=== PATIENT | male | born 1945 | race Caucasian/White ===

== ENCOUNTER 2016-03-29 20:50 | Observation (INO) | payer MEDICARE ==
[~2016-03-29] VITALS: Ht 190.5 cm; Wt 90.3 kg
[~2016-03-29 20:50] MED LIST: ACTOS 15MG TAB15 MG PO; ALBUTEROL1.25 MG/3 IH; ALDACTONE50 MG PO; ALTACE 10MG TAB10 MG PO; ALTACE 5MG5 MG PO; AMARYL4 MG PO; AMBIEN 10MG10 MG PO; ASPI325T6 PO; ASPIRIN 81M81 MG/TA2 PO; ATARAX 25MG25 MG/TAB PO; CELEBREX 200MG200 MG PO; CELEXA 20MG20 MG/TAB PO; CELEXA10 MG PO; CEPHALEXIN500 M1 PO; COREG 25MG25 MG/TAB PO; COREG 6.256.25 MG/TA PO; ECONAZOLE NITRATE11 TOP; FERROUS SU325 MG/TAB PO; FLOMAX 0.40.4 MG/CAP PO; FORTAMET1000 MG PO; GLUCOPHAGE1000 MG PO; HCTZ 25MG TAB25 MG PO; HCTZ 25MG25 MG PO; IMDUR 60MG60 MG/TAB PO; JANUVIA 100MG100 MG PO; LANTUS100 U/ML; LANTUS100 U/ML SC; LASIX 40MG TABL40 MG PO; LEVOXYL0.05 MG PO; MELATONIN1 MG PO; NORCO 325 MG-7.1 TAB PO; NOVOLOG 100U100 U/M1; PRAVACHOL10 MG PO; PRAVACHOL80 MG PO; PREDNISONE20 MG PO; PROTONIX 40MG T40 MG PO; Senokot-S PO; VASOTEC20 MG PO; VASOTEC5 MG PO; VICTOZA6 MG/ML SC
[2016-03-29 21:09] LABS: BASO % 0.3 % (0.0-2.0); EOS # 0.1 (0.0-0.7); EOS % 0.9 % (0-4.0); GRAN # 3.2 (1.4-6.5); GRAN % 47.3 % (42.2-75.2); LYMPH # 3.2 (1.2-3.4); LYMPH % 47.5 % (20.0-51.0); MEAN CELL VOLUME 100 fl (80.0-100.0); MEAN CORPUSCULAR HGB CONC 33 g/dl (33.0-37.0); MONO # 0.2 (0.1-0.6); PLATELET COUNT 246 K/mm3 (130-400); RED BLOOD COUNT 3.29 M/mm3 (4.20-5.60); REDCELL DISTRIBUTION WIDTH-CV 14.1 % (11.5-14.5); WHITE BLOOD COUNT 6.7 K/mm3 (4.8-10.8)
[2016-03-29 21:18] LABS: PROTHROMBIN TIME 10.9 SECONDS (9.7-12.8)
[2016-03-29 21:19] LABS: ADJUSTED CALCIUM 9.9 mg/dL (8.4-10.2); ALBUMIN 3.5 gm/dL (3.5-5.0); BILIRUBIN,TOTAL 0.6 mg/dL (0.0-1.0); CALCIUM 9.5 mg/dL (8.4-10.2); CREATININE, serum 1.19 mg/dL (0.66-1.25); TOTAL PROTEIN 6.7 gm/dL (6.4-8.2)
[2016-03-29 21:21] LABS: PARTIAL THROMBOPLASTIN TIME 29.7 SECONDS (26.0-37.0)
[2016-03-29 21:26] LABS: MEAN CORPUSCULAR HEMOGLOBIN 33 pg (27.0-31.0)
[2016-03-29 23:20] VITALS: BP 166/72; PULSE 72; TEMP 97.5
[2016-03-30 02:52] VITALS: BP 171/65; PULSE 80; TEMP 97.9
[2016-03-30 03:30] VITALS: BP 165/69; PULSE 79
[2016-03-30 04:58] VITALS: BP 177/75; PULSE 78; TEMP 97.6
[2016-03-30 06:01] VITALS: BP 163/67; PULSE 71
[2016-03-30 10:29] VITALS: BP 158/123; PULSE 86; TEMP 97.8
[2016-03-30] MEDS ORDERED: SYNTHROID0.1 MG/TAB PO (12:22)
[2016-03-30] MEDS ORDERED: VITAMIN A10k (12:56)
[2016-03-30] MEDS ORDERED: PROTONIX 40MG T40 MG PO (12:56)
[2016-03-30] MEDS ORDERED: VITAMIN D31000 IU PO (12:57)
[2016-03-30] MEDS ORDERED: CENTRUM SILVER1 TAB (12:57)
[2016-03-30] MEDS ORDERED: ALDACTONE50 MG PO (12:58)
[2016-03-30] MEDS ORDERED: ASPIRIN 32325 MG/TAB PO (13:01)
[2016-03-30] MEDS ORDERED: ALTACE 10MG TAB10 MG PO (13:02)
[2016-03-30] MEDS ORDERED: PREDNISONE10 MG PO (13:02)
[2016-03-30 13:27] VITALS: BP 176/76; PULSE 83; TEMP 97.9
[2016-03-30] MEDS ORDERED: LAMISIL250 M1 PO (16:10)
== END 2016-03-30 17:12 | disposition home or self-care (01) ==
LOC: COL.ER 20:50 → SURG 21:05
PROVIDERS: Emergency Medicine
DX: R40.4 Transient alteration of awareness (principal); E11.9 Type 2 diabetes mellitus without complications; Z79.4 Long term (current) use of insulin
CPT/HCPCS: G0378; J1815; J7030

== ENCOUNTER → 2016-04-01 | Outpatient (CLI) | payer MEDICARE ==
[~2016-04-01] MED LIST changes: +ALMACONE 360 M360 ML PO; +ASPIRIN 32325 MG/TAB PO; +ASPIRIN 81M81 MG/TA2 CHEW; +CENTRUM SILVER1 TAB; +DULCOLAX S10 MG/SUPP RC; +HUMALOG100 U/ML SQ; +LAMISIL250 M1 PO; +LANTUS100 U/ML SQ; +METAMUCIL3.4 GM/DOS PO; +MILK OF MA400 MG/52 PO; +MIRALAX PA17 GM/Dose PO; +PERCOCET 325 MG1 TA3 PO; +PREDNISONE10 MG PO; +SYNTHROID0.1 MG/TAB PO; +TYLENOL 325MG325 MG PO; +ULTRAM 50MG TAB50 MG PO; +VITAMIN A10k; +VITAMIN D31000 IU PO
== END ==
LOC: COL.RAD 09:05
DX: Z86.73 Personal history of transient ischemic attack (TIA), and cerebral infarction without residual deficits (principal)

== ENCOUNTER → 2016-07-10 | Outpatient (CLI) | payer MEDICARE ==
[2016-07-10 10:27] LABS: BASO % 0.2 % (0.0-2.0); EOS % 0.2 % (0-4.0); GRAN # 4.6 (1.4-6.5); GRAN % 77.6 % (42.2-75.2); LYMPH # 1.1 (1.2-3.4); LYMPH % 18.1 % (20.0-51.0); MEAN CELL VOLUME 101 fl (80.0-100.0); MEAN CORPUSCULAR HGB CONC 33 g/dl (33.0-37.0); MEAN PLATELET VOLUME 9.6 fl (7.4-10.4); MONO # 0.2 (0.1-0.6); MONO % 3.2 % (1.7-9.3); PLATELET COUNT 202 K/mm3 (130-400); REDCELL DISTRIBUTION WIDTH-CV 13.2 % (11.5-14.5); RETIC % 2.3 % (0.5-3.52); WHITE BLOOD COUNT 5.9 K/mm3 (4.8-10.8)
[2016-07-10 10:28] LABS: HEMATOCRIT 26.2 % (42.0-52.0); HEMOGLOBIN 8.7 g/dl (13.5-18.0); MEAN CORPUSCULAR HEMOGLOBIN 33 pg (27.0-31.0)
[2016-07-10 10:54] LABS: ERYTHROCYTE SEDIMENTATION RATE > 140 mm/hr (0-30)
[2016-07-10 11:37] LABS: ADJUSTED CALCIUM 9.9 mg/dL (8.4-10.2); BILIRUBIN,TOTAL 0.5 mg/dL (0.0-1.0); CALCIUM 9.1 mg/dL (8.4-10.2); CREATININE, serum 1.43 mg/dL (0.66-1.25); POTASSIUM 4.8 mmol/L (3.4-5.0)
[2016-07-10 11:54] LABS: TROPONIN-I 0.06 ng/mL (0.000-0.034)
[2016-07-10 12:05] LABS: THYROID STIMULATING HORMONE 2.68 uIU/mL (0.465-4.680)
[2016-07-10 12:14] LABS: C-REACTIVE PROTEIN 13.7 mg/dL (0.0-0.9)
== END ==
LOC: ZCOL.LAB 10:00
PROVIDERS: Emergency Medicine
DX: E11.65 Type 2 diabetes mellitus with hyperglycemia (principal); Z79.4 Long term (current) use of insulin; I10 Essential (primary) hypertension; Z79.899 Other long term (current) drug therapy; I50.41 Acute combined systolic (congestive) and diastolic (congestive) heart failure; R23.1 Pallor

== ENCOUNTER 2016-07-13 09:55 | Observation (INO) | payer MEDICARE ==
[~2016-07-13] VITALS: Ht 190.5 cm; Wt 93.0 kg
[2016-07-13] VITALS (10 sets, daily range): BP systolic 140–184; BP diastolic 53–87; PULSE 65–97; TEMP 97.6–98.7
[~2016-07-13 09:55] MED LIST changes: -ALMACONE 360 M360 ML PO; -ASPIRIN 81M81 MG/TA2 CHEW; -DULCOLAX S10 MG/SUPP RC; -HUMALOG100 U/ML SQ; -LANTUS100 U/ML SQ; -METAMUCIL3.4 GM/DOS PO; -MILK OF MA400 MG/52 PO; -MIRALAX PA17 GM/Dose PO; -PERCOCET 325 MG1 TA3 PO; -TYLENOL 325MG325 MG PO; -ULTRAM 50MG TAB50 MG PO
[2016-07-13 11:21] LABS: GRAN # 6.1 (1.4-6.5); GRAN % 89.9 % (42.2-75.2); LYMPH # 0.5 (1.2-3.4); LYMPH % 7.3 % (20.0-51.0); MEAN CELL VOLUME 99 fl (80.0-100.0); MEAN CORPUSCULAR HGB CONC 33 g/dl (33.0-37.0); MEAN PLATELET VOLUME 9.3 fl (7.4-10.4); MONO # 0.1 (0.1-0.6); MONO % 2.1 % (1.7-9.3); PLATELET COUNT 183 K/mm3 (130-400); RED BLOOD COUNT 2.49 M/mm3 (4.20-5.60); REDCELL DISTRIBUTION WIDTH-CV 13.2 % (11.5-14.5); WHITE BLOOD COUNT 6.8 K/mm3 (4.8-10.8)
[2016-07-13 11:45] LABS: ADJUSTED CALCIUM 9.7 mg/dL (8.4-10.2); ALBUMIN 2.8 gm/dL (3.5-5.0); BILIRUBIN,TOTAL 0.5 mg/dL (0.0-1.0); CALCIUM 8.7 mg/dL (8.4-10.2); CREATININE, serum 1.38 mg/dL (0.66-1.25); TOTAL PROTEIN 5.8 gm/dL (6.4-8.2)
[2016-07-13 11:54] LABS: TROPONIN-I 0.02 ng/mL (0.000-0.034)
[2016-07-13 11:57] LABS: ERYTHROCYTE SEDIMENTATION RATE > 140 mm/hr (0-30); HEMATOCRIT 24.6 % (42.0-52.0); HEMOGLOBIN 8.2 g/dl (13.5-18.0); MEAN CORPUSCULAR HEMOGLOBIN 33 pg (27.0-31.0)
[2016-07-13 12:00] LABS: URIC ACID 9.3 mg/dL (3.5-8.5)
[2016-07-13 12:05] LABS: C-REACTIVE PROTEIN 24.7 mg/dL (0.0-0.9)
[2016-07-13] MEDS ORDERED: HUMALOG100 U/ML SQ (13:16)
[2016-07-13] MEDS ORDERED: LANTUS100 U/ML SQ (13:19)
[2016-07-14 03:31] VITALS: BP 196/78; PULSE 67; TEMP 97.6
[2016-07-14 07:15] LABS: HEMATOCRIT 31.4 % (42.0-52.0); HEMOGLOBIN 10.9 g/dl (13.5-18.0)
[2016-07-14 07:31] LABS: CALCIUM 9.1 mg/dL (8.4-10.2); CREATININE, serum 1.55 mg/dL (0.66-1.25); POTASSIUM 4.3 mmol/L (3.4-5.0)
[2016-07-14 08:08] VITALS: BP 187/83; PULSE 59; TEMP 97.6
== END 2016-07-14 11:50 | disposition home or self-care (01) ==
LOC: COL.ER 09:55 → MEDICAL 12:43
PROVIDERS: Emergency Medicine
DX: D64.9 Anemia, unspecified (principal); I11.0 Hypertensive heart disease with heart failure; I50.9 Heart failure, unspecified; E11.9 Type 2 diabetes mellitus without complications; F32.9 Major depressive disorder, single episode, unspecified; E78.5 Hyperlipidemia, unspecified; M25.572 Pain in left ankle and joints of left foot; Z79.4 Long term (current) use of insulin; Z98.1 Arthrodesis status
CPT/HCPCS: G0378; J1815; J1940; J2930; P9016

== ENCOUNTER 2016-07-17 13:06 | Observation (INO) | payer MEDICARE ==
[~2016-07-17] VITALS: Ht 190.5 cm; Wt 93.0 kg
[~2016-07-17 13:06] MED LIST changes: +HUMALOG100 U/ML SQ; +LANTUS100 U/ML SQ
[2016-07-17 14:14] LABS: GRAN # 6.1 (1.4-6.5); GRAN % 83.8 % (42.2-75.2); HEMOGLOBIN 11.6 g/dl (13.5-18.0); LYMPH # 0.7 (1.2-3.4); LYMPH % 9.4 % (20.0-51.0); MEAN CELL VOLUME 97 fl (80.0-100.0); MEAN CORPUSCULAR HEMOGLOBIN 32 pg (27.0-31.0); MEAN CORPUSCULAR HGB CONC 33 g/dl (33.0-37.0); MEAN PLATELET VOLUME 9.1 fl (7.4-10.4); MONO # 0.4 (0.1-0.6); MONO % 5.4 % (1.7-9.3); PLATELET COUNT 214 K/mm3 (130-400); RED BLOOD COUNT 3.62 M/mm3 (4.20-5.60); REDCELL DISTRIBUTION WIDTH-CV 13.4 % (11.5-14.5); WHITE BLOOD COUNT 7.3 K/mm3 (4.8-10.8)
[2016-07-17 14:20] LABS: PARTIAL THROMBOPLASTIN TIME 27.8 SECONDS (26.0-37.0)
[2016-07-17 14:27] LABS: INR 1.3 (0.8-3.0); PROTHROMBIN TIME 14.1 SECONDS (9.7-12.8)
[2016-07-17 14:28] LABS: ADJUSTED CALCIUM 10.2 mg/dL (8.4-10.2); ALBUMIN 2.6 gm/dL (3.5-5.0); BILIRUBIN,TOTAL 0.6 mg/dL (0.0-1.0); CALCIUM 9.1 mg/dL (8.4-10.2); CREATININE, serum 1.34 mg/dL (0.66-1.25); POTASSIUM 4.1 mmol/L (3.4-5.0); TOTAL PROTEIN 5.6 gm/dL (6.4-8.2)
[2016-07-17 14:39] LABS: TROPONIN-I 0.051 ng/mL (0.000-0.034)
[2016-07-17 15:14] LABS: HYALINE CAST >12 /lpf; PH 5 (5-8); SQUAMOUS EPITHELIAL 0-2 /hpf; URINE APPEARANCE Hazy; URINE BACTERIA Many /hpf; URINE BILIRUBIN Negative (NEGATIVE); URINE BLOOD 2+ (NEGATIVE); URINE COLOR Yellow; URINE GLUCOSE Negative (NEGATIVE); URINE KETONE Negative (NEGATIVE); URINE RBC 20-50 /hpf; URINE UROBILINOGEN Negative (NEGATIVE)
[2016-07-17 15:15] LABS: URINE WBC 20-50 /hpf
[2016-07-17 17:46] VITALS: BP 140/62
[2016-07-17 18:00] LABS: ERYTHROCYTE SEDIMENTATION RATE 105 mm/hr (0-30)
[2016-07-17 18:13] LABS: C-REACTIVE PROTEIN 20.2 mg/dL (0.0-0.9)
[2016-07-17 20:47] VITALS: BP 149/86; PULSE 71; TEMP 97.9
[2016-07-17 23:52] VITALS: BP 160/77; PULSE 71; TEMP 98.4
[2016-07-18 03:15] VITALS: BP 176/80; PULSE 80; TEMP 97.3
[2016-07-18 08:07] VITALS: BP 184/74; PULSE 71; TEMP 98.5
[2016-07-18 11:20] VITALS: BP 179/80; PULSE 68; TEMP 98.2
== END 2016-07-18 11:45 | disposition home or self-care (01) ==
LOC: COL.ER 13:06 → MEDICAL 15:15
PROVIDERS: Emergency Medicine
DX: E11.649 Type 2 diabetes mellitus with hypoglycemia without coma (principal); I95.9 Hypotension, unspecified; R74.8 Abnormal levels of other serum enzymes; I50.9 Heart failure, unspecified; M25.572 Pain in left ankle and joints of left foot; I13.0 Hypertensive heart and chronic kidney disease with heart failure and stage 1 through stage 4 chronic kidney disease, or unspecified chronic kidney disease; M35.9 Systemic involvement of connective tissue, unspecified; N18.9 Chronic kidney disease, unspecified; E11.22 Type 2 diabetes mellitus with diabetic chronic kidney disease; I10 Essential (primary) hypertension; E78.5 Hyperlipidemia, unspecified; D64.9 Anemia, unspecified; J98.4 Other disorders of lung; D75.89 Other specified diseases of blood and blood-forming organs; Z79.4 Long term (current) use of insulin
CPT/HCPCS: G0378; J0696; J1815; J2930; J7030

== ENCOUNTER 2016-07-31 05:41 | Observation (INO) | payer MEDICARE ==
[~2016-07-31] VITALS: Ht 190.5 cm; Wt 93.7 kg
[2016-07-31 06:12] LABS: MEAN CELL VOLUME 97 fl (80.0-100.0); MEAN CORPUSCULAR HGB CONC 33 g/dl (33.0-37.0); MEAN PLATELET VOLUME 9.6 fl (7.4-10.4); PLATELET COUNT 97 K/mm3 (130-400); REDCELL DISTRIBUTION WIDTH-CV 12.7 % (11.5-14.5); WHITE BLOOD COUNT 4.4 K/mm3 (4.8-10.8)
[2016-07-31 06:14] LABS: HEMATOCRIT 32.9 % (42.0-52.0); HEMOGLOBIN 10.7 g/dl (13.5-18.0); MEAN CORPUSCULAR HEMOGLOBIN 31 pg (27.0-31.0)
[2016-07-31 06:15] LABS: ADD PATHOLOGY DIFF REVIEW NO
[2016-07-31 06:20] LABS: ALANINE AMINOTRANSFERASE 36 U/L (21-72); ALBUMIN 2.5 gm/dL (3.5-5.0); ALKALINE PHOSPHATASE 94 U/L (50-136); ANION GAP 6 mmol/L (7-16); BILIRUBIN,TOTAL 0.8 mg/dL (0.0-1.0); BLOOD UREA NITROGEN 56 mg/dL (9-20); CALCIUM 8.8 mg/dL (8.4-10.2); CARBON DIOXIDE 30 mmol/L (22-30); CHLORIDE 94 mmol/L (98-107); POTASSIUM 4.9 mmol/L (3.4-5.0); SODIUM 131 mmol/L (137-145); TOTAL PROTEIN 5.3 gm/dL (6.4-8.2)
[2016-07-31 06:21] LABS: GLUCOSE 425 mg/dL (74-106)
[2016-07-31 06:36] LABS: TROPONIN-I 0.055 ng/mL (0.000-0.034)
[2016-07-31 06:52] LABS: BAND 5 % (0-10); EOSINOPHIL 3 % (0-4); NEUTROPHILS 85 % (42.0-75.2); TOTAL CELLS COUNTED 100
[2016-07-31 06:54] LABS: PLATELET ESTIMATE DECREASED (NORMAL)
[2016-07-31 06:55] LABS: HYPOCHROMIA 1+
[2016-07-31 07:10] LABS: ERYTHROCYTE SEDIMENTATION RATE 80 mm/hr (0-30)
[2016-07-31 07:20] LABS: PH 5 (5-8); SQUAMOUS EPITHELIAL None Seen /hpf; URINE APPEARANCE Clear; URINE BACTERIA Rare /hpf; URINE BILIRUBIN Negative (NEGATIVE); URINE BLOOD 2+ (NEGATIVE); URINE COLOR Yellow; URINE GLUCOSE 3+ (NEGATIVE); URINE KETONE Negative (NEGATIVE); URINE UROBILINOGEN Negative (NEGATIVE)
[2016-07-31 08:18] VITALS: BP 153/66; PULSE 70; TEMP 97.9
[2016-07-31 10:24] LABS: INR 1.2 (0.8-3.0)
[2016-07-31 10:26] LABS: PARTIAL THROMBOPLASTIN TIME 26.6 SECONDS (26.0-37.0)
[2016-07-31 11:24] VITALS: BP 155/77; PULSE 75; TEMP 98.7
[2016-07-31 15:41] VITALS: BP 177/79; PULSE 81; TEMP 97.9
[2016-07-31 20:23] VITALS: BP 170/70; PULSE 75; TEMP 98.3
[2016-08-01] VITALS (7 sets, daily range): BP systolic 143–188; BP diastolic 65–664; PULSE 60–105; TEMP 97.8–98.5
[2016-08-02] VITALS (7 sets, daily range): BP systolic 149–198; BP diastolic 59–91; PULSE 62–74; TEMP 97.5–98.5
[2016-08-03] VITALS (7 sets, daily range): BP systolic 150–188; BP diastolic 64–76; PULSE 62–70; TEMP 97.5–98.6
[2016-08-04 07:54] VITALS: BP 181/73; PULSE 77; TEMP 98.6
[2016-08-04 11:53] VITALS: BP 157/72; PULSE 88; TEMP 98.1
[2016-08-04 16:12] VITALS: BP 163/76; PULSE 64; TEMP 97.8
[2016-08-04 19:49] VITALS: BP 181/79; PULSE 76; TEMP 98.5
[2016-08-04 23:02] VITALS: BP 176/71; PULSE 62; TEMP 97.6
[2016-08-05] VITALS (11 sets, daily range): BP systolic 139–180; BP diastolic 62–88; PULSE 58–73; TEMP 97.6–98.5
[2016-08-05 07:04] LABS: HEMOGLOBIN 10.1 g/dl (13.5-18.0)
[2016-08-05 07:14] LABS: CALCIUM 8.8 mg/dL (8.4-10.2); CREATININE, serum 1.19 mg/dL (0.66-1.25); POTASSIUM 4.5 mmol/L (3.4-5.0)
[2016-08-06 02:46] VITALS: BP 185/91; PULSE 70; TEMP 98.5
[2016-08-06 08:31] VITALS: BP 165/96; PULSE 65; TEMP 97.8
[2016-08-06 10:19] LABS: HEMOGLOBIN 10.9 g/dl (13.5-18.0)
[2016-08-06] MEDS ORDERED: ALTACE 10MG TAB10 MG PO (10:20)
[2016-08-06] MEDS ORDERED: PREDNISONE20 MG PO (10:20)
[2016-08-06] MEDS ORDERED: PERCOCET 325 MG1 TA3 PO (10:20)
[2016-08-06 11:18] VITALS: BP 165/96; PULSE 65; TEMP 97.8
[2016-08-06 11:32] VITALS: BP 145/64; PULSE 66; TEMP 97.3
[2016-08-07] MEDS ORDERED: METAMUCIL3.4 GM/DOS PO (13:47)
[2016-08-07] MEDS ORDERED: MILK OF MA400 MG/52 PO (13:48)
[2016-08-07] MEDS ORDERED: ALMACONE 360 M360 ML PO (13:48)
== END 2016-08-06 13:47 ==
LOC: COL.ER 05:41 → MEDICAL 07:16
PROVIDERS: Emergency Medicine
DX: S32.10XA Unspecified fracture of sacrum, initial encounter for closed fracture (principal); W01.198A Fall on same level from slipping, tripping and stumbling with subsequent striking against other object, initial encounter; Y92.009 Unspecified place in unspecified non-institutional (private) residence as the place of occurrence of the external cause; E11.9 Type 2 diabetes mellitus without complications; Z79.4 Long term (current) use of insulin; I50.9 Heart failure, unspecified; R60.9 Edema, unspecified; D64.89 Other specified anemias; Z79.52 Long term (current) use of systemic steroids; I10 Essential (primary) hypertension; F32.9 Major depressive disorder, single episode, unspecified
CPT/HCPCS: C1713; G0378; G8978-GP; G8979-GP; J1815; J1940; J2250; J2270; J3010; J7512; Q9967

== ENCOUNTER 2016-08-07 12:34 | Inpatient (IN) | payer MEDICARE ==
[~2016-08-07] VITALS: Ht 190.5 cm; Wt 89.4 kg
[2016-08-07] VITALS (175 sets, daily range): BP systolic 120–153; BP diastolic 75–102; PULSE 64–68; TEMP 97–98.2; O2SAT 76–99
[~2016-08-07 12:34] MED LIST changes: +PERCOCET 325 MG1 TA3 PO
[2016-08-07] MEDS ORDERED: METAMUCIL3.4 GM/DOS PO (13:47)
[2016-08-07] MEDS ORDERED: ALMACONE 360 M360 ML PO (13:48)
[2016-08-07] MEDS ORDERED: MILK OF MA400 MG/52 PO (13:48)
[2016-08-07 14:20] LABS: ADJUSTED CALCIUM 9.6 mg/dL (8.4-10.2); ALBUMIN 2.2 gm/dL (3.5-5.0); BILIRUBIN,TOTAL 0.6 mg/dL (0.0-1.0); C-REACTIVE PROTEIN 1.6 mg/dL (0.0-0.9); CALCIUM 8.2 mg/dL (8.4-10.2); CREATININE, serum 1.37 mg/dL (0.66-1.25); POTASSIUM 3.9 mmol/L (3.4-5.0); TOTAL PROTEIN 4.4 gm/dL (6.4-8.2)
[2016-08-07 14:22] LABS: MEAN CELL VOLUME 94 fl (80.0-100.0); MEAN CORPUSCULAR HGB CONC 33 g/dl (33.0-37.0); MEAN PLATELET VOLUME 9.2 fl (7.4-10.4); PLATELET COUNT 162 K/mm3 (130-400); RED BLOOD COUNT 3.02 M/mm3 (4.20-5.60); REDCELL DISTRIBUTION WIDTH-CV 12.8 % (11.5-14.5); WHITE BLOOD COUNT 4.6 K/mm3 (4.8-10.8)
[2016-08-07 14:25] LABS: HEMATOCRIT 28.5 % (42.0-52.0); HEMOGLOBIN 9.5 g/dl (13.5-18.0); MEAN CORPUSCULAR HEMOGLOBIN 31 pg (27.0-31.0)
[2016-08-07 14:26] LABS: ADD PATHOLOGY DIFF REVIEW NO
[2016-08-07 14:47] LABS: THYROID STIMULATING HORMONE 2.25 uIU/mL (0.465-4.680)
[2016-08-07 15:09] LABS: BAND 12 % (0-10); METAMYELOCYTE 1 % (0-0); TOTAL CELLS COUNTED 100
[2016-08-07 15:10] LABS: PLATELET ESTIMATE NORMAL (NORMAL)
[2016-08-07 15:13] LABS: NEUTROPHILS 67 % (42.0-75.2)
[2016-08-07 18:46] LABS: HEMATOCRIT 31.8 % (42.0-52.0); HEMOGLOBIN 10.4 g/dl (13.5-18.0)
[2016-08-08] VITALS (723 sets, daily range): BP systolic 130–160; BP diastolic 57–84; PULSE 68–80; TEMP 96.8–98.2; O2SAT 73–100
[2016-08-08 05:20] LABS: PH 5 (5-8); SQUAMOUS EPITHELIAL None Seen /hpf; URINE APPEARANCE Hazy; URINE BACTERIA Rare /hpf; URINE BILIRUBIN Negative (NEGATIVE); URINE BLOOD Negative (NEGATIVE); URINE COLOR Yellow; URINE GLUCOSE Negative (NEGATIVE); URINE KETONE Negative (NEGATIVE); URINE UROBILINOGEN Negative (NEGATIVE)
[2016-08-08 06:06] LABS: HEMATOCRIT 31.6 % (42.0-52.0); HEMOGLOBIN 10.5 g/dl (13.5-18.0)
[2016-08-08 06:11] LABS: C-REACTIVE PROTEIN 3.2 mg/dL (0.0-0.9); CALCIUM 8.6 mg/dL (8.4-10.2); CREATININE, serum 1.18 mg/dL (0.66-1.25); POTASSIUM 4.7 mmol/L (3.4-5.0)
[2016-08-08 06:38] LABS: TROPONIN-I 0.044 ng/mL (0.000-0.034)
[2016-08-09] VITALS (7 sets, daily range): BP systolic 135–165; BP diastolic 61–98; PULSE 57–71; TEMP 97.2–98.6
[2016-08-09 13:28] LABS: HEMATOCRIT 28.8 % (42.0-52.0); HEMOGLOBIN 9.7 g/dl (13.5-18.0)
[2016-08-10 00:15] VITALS: BP 151/68; PULSE 71; TEMP 97.6
[2016-08-10 03:43] VITALS: BP 145/65; PULSE 64; TEMP 96.2
[2016-08-10 08:24] VITALS: BP 174/75; PULSE 63; TEMP 98.2
[2016-08-10] MEDS ORDERED: ALDACTONE50 MG PO (10:45)
[2016-08-10] MEDS ORDERED: ULTRAM 50MG TAB50 MG PO (10:48)
[2016-08-10] MEDS ORDERED: LASIX 40MG TABL40 MG PO (10:54)
[2016-08-10] MEDS ORDERED: ASPIRIN 81M81 MG/TA2 CHEW (10:57)
[2016-08-10 11:02] VITALS: BP 151/79; PULSE 63; TEMP 98.3
[2016-08-10 12:58] VITALS: BP 151/79; PULSE 63; TEMP 98.3
== END 2016-08-10 13:18 | DRG 854 ==
LOC: COL.ER 12:34 → MEDICAL 14:00 → IMCU 16:54 → MEDICAL 08-08 18:05
PROVIDERS: Emergency Medicine
PROC: 0QU13JZ Supplement Sacrum with Synthetic Substitute, Percutaneous Approach (ICD-10-PCS; principal; 2016-08-06)
PROC: 0DJ08ZZ Inspection of Upper Intestinal Tract, Via Natural or Artificial Opening Endoscopic (ICD-10-PCS; 2016-08-08)
DX: R57.1 Hypovolemic shock (principal); S32.10XA Unspecified fracture of sacrum, initial encounter for closed fracture; K92.2 Gastrointestinal hemorrhage, unspecified; I95.9 Hypotension, unspecified; M35.9 Systemic involvement of connective tissue, unspecified; K21.9 Gastro-esophageal reflux disease without esophagitis; D50.9 Iron deficiency anemia, unspecified; E11.65 Type 2 diabetes mellitus with hyperglycemia; I10 Essential (primary) hypertension; R60.9 Edema, unspecified; Z79.52 Long term (current) use of systemic steroids; Z79.4 Long term (current) use of insulin; S32.10XD Unspecified fracture of sacrum, subsequent encounter for fracture with routine healing
CPT/HCPCS: C1713; G0378; G8978-GP; G8979-GP; J1720; J1815; J1940; J2250; J2270; J2405; J3010; J7030; J7512; Q9967

== ENCOUNTER 2016-08-20 09:49 | Inpatient (IN) | payer MEDICARE ==
[2016-08-20] VITALS (651 sets, daily range): BP systolic 100–114; BP diastolic 46–59; PULSE 62–67; TEMP 97–98.4; O2SAT 82–100
[~2016-08-20] VITALS: Ht 188 cm; Wt 97.2 kg
[~2016-08-20 09:49] MED LIST changes: +ALMACONE 360 M360 ML PO; +ASPIRIN 81M81 MG/TA2 CHEW; +METAMUCIL3.4 GM/DOS PO; +MILK OF MA400 MG/52 PO; +ULTRAM 50MG TAB50 MG PO
[2016-08-20 10:28] LABS: HEMATOCRIT 26.1 % (42.0-52.0); HEMOGLOBIN 8.6 g/dl (13.5-18.0)
[2016-08-20 10:38] LABS: ADJUSTED CALCIUM 9.8 mg/dL (8.4-10.2); BILIRUBIN,TOTAL 0.6 mg/dL (0.0-1.0); CALCIUM 8.2 mg/dL (8.4-10.2); TOTAL PROTEIN 4.5 gm/dL (6.4-8.2)
[2016-08-20 10:55] LABS: CREATININE, serum 4.14 mg/dL (0.66-1.25); POTASSIUM 7.6 mmol/L (3.4-5.0)
[2016-08-20 11:00] LABS: MEAN CELL VOLUME 96 fl (80.0-100.0); MEAN CORPUSCULAR HGB CONC 33 g/dl (33.0-37.0); MEAN PLATELET VOLUME 9.7 fl (7.4-10.4); PLATELET COUNT 140 K/mm3 (130-400); RED BLOOD COUNT 2.77 M/mm3 (4.20-5.60); WHITE BLOOD COUNT 6.8 K/mm3 (4.8-10.8)
[2016-08-20 11:02] LABS: HEMATOCRIT 26.5 % (42.0-52.0); HEMOGLOBIN 8.7 g/dl (13.5-18.0); MEAN CORPUSCULAR HEMOGLOBIN 31 pg (27.0-31.0)
[2016-08-20 11:03] LABS: ADD PATHOLOGY DIFF REVIEW NO
[2016-08-20 11:08] LABS: ALLEN TEST YES; ALLENS TEST RESULT PASS; ARTERIAL BLD GAS O2 SATURATION 97.1 % (92-100); ARTERIAL BLD GAS TCO2 CT 21.8; ARTERIAL BLOOD GAS BASE EXCESS -5.5 (-2-2); ARTERIAL BLOOD GAS HCO3 20.5 meq/L (22-26); ARTERIAL BLOOD GAS PO2 115.4 mmHg (80-100); ATS? YES; OXYHEMOGLOBIN 95.6 %
[2016-08-20 11:10] LABS: MAGNESIUM 2.9 mg/dL (1.6-2.3)
[2016-08-20 11:28] LABS: BAND 15 % (0-10); NEUTROPHILS 81 % (42.0-75.2); PLATELET ESTIMATE NORMAL (NORMAL); TOTAL CELLS COUNTED 100
[2016-08-20 12:05] LABS: HYALINE CAST >12 /lpf; PH 5 (5-8); SQUAMOUS EPITHELIAL 0-2 /hpf; URINE APPEARANCE Cloudy; URINE BACTERIA Many /hpf; URINE BILIRUBIN Negative (NEGATIVE); URINE BLOOD 3+ (NEGATIVE); URINE COLOR Yellow; URINE GLUCOSE Negative (NEGATIVE); URINE KETONE Negative (NEGATIVE); URINE RBC >50 /hpf; URINE UROBILINOGEN Negative (NEGATIVE)
[2016-08-20 12:06] LABS: URINE WBC >50 /hpf
[2016-08-20 16:57] LABS: INR 1.1 (0.8-3.0); PROTHROMBIN TIME 12.3 SECONDS (9.7-12.8)
[2016-08-20 18:51] LABS: URINE PROTEIN:CREAT RATIO 0.18 (0.00-0.14)
[2016-08-20 20:18] LABS: ARTERIAL BLD GAS O2 SATURATION 94.2 % (92-100); ARTERIAL BLD GAS TCO2 CT 25.8; ARTERIAL BLOOD GAS BASE EXCESS -1.6 (-2-2); ARTERIAL BLOOD GAS HCO3 24.4 meq/L (22-26); ARTERIAL BLOOD GAS PHT 7.33 C (7.35-7.45); ARTERIAL BLOOD GAS PO2 80.5 mmHg (80-100); ARTERIAL BLOOD GAS PO2T 80.5 (80-100); ARTERIAL BLOOD GAS pH 7.33 (7.35-7.45); OXYHEMOGLOBIN 93.3 %
[2016-08-20 20:19] LABS: ALLEN TEST YES; ALLENS TEST RESULT PASS; ATS? YES
[2016-08-20 21:23] LABS: CREATININE, serum 3.29 mg/dL (0.66-1.25)
[2016-08-20 21:29] LABS: POTASSIUM 6.5 mmol/L (3.4-5.0)
[2016-08-20] MEDS ORDERED: DULCOLAX S10 MG/SUPP RC (23:27)
[2016-08-20] MEDS ORDERED: TYLENOL 325MG325 MG PO (23:27)
[2016-08-20] MEDS ORDERED: ULTRAM 50MG TAB50 MG PO (23:30)
[2016-08-20] MEDS ORDERED: MIRALAX PA17 GM/Dose PO (23:31)
[2016-08-20] MEDS ORDERED: PERCOCET 325 MG1 TA3 PO ×2 (23:35→23:36)
[2016-08-21] VITALS (221 sets, daily range): BP systolic 79–116; BP diastolic 48–57; PULSE 63–64; TEMP 97.2–97.4; O2SAT 33–100
[2016-08-21 04:24] LABS: ARTERIAL BLD GAS O2 SATURATION 92.3 % (92-100); ARTERIAL BLD GAS TCO2 CT 25.9; ARTERIAL BLOOD GAS BASE EXCESS -3.3 (-2-2); ARTERIAL BLOOD GAS HCO3 24.2 meq/L (22-26); ARTERIAL BLOOD GAS PHT 7.25 C (7.35-7.45); ARTERIAL BLOOD GAS PO2 78.2 mmHg (80-100); ARTERIAL BLOOD GAS PO2T 78.2 (80-100); ARTERIAL BLOOD GAS pH 7.25 (7.35-7.45); OXYHEMOGLOBIN 91.8 %
[2016-08-21 04:25] LABS: ALLEN TEST YES; ALLENS TEST RESULT PASS; ATS? YES
[2016-08-21 04:48] LABS: MEAN CELL VOLUME 97 fl (80.0-100.0); MEAN CORPUSCULAR HGB CONC 32 g/dl (33.0-37.0); MEAN PLATELET VOLUME 9.2 fl (7.4-10.4); PLATELET COUNT 110 K/mm3 (130-400); RED BLOOD COUNT 2.68 M/mm3 (4.20-5.60); REDCELL DISTRIBUTION WIDTH-CV 14.1 % (11.5-14.5); WHITE BLOOD COUNT 5.4 K/mm3 (4.8-10.8)
[2016-08-21 04:51] LABS: HEMATOCRIT 25.9 % (42.0-52.0); HEMOGLOBIN 8.3 g/dl (13.5-18.0); MEAN CORPUSCULAR HEMOGLOBIN 31 pg (27.0-31.0)
[2016-08-21 04:52] LABS: ADD PATHOLOGY DIFF REVIEW NO
[2016-08-21 05:13] LABS: BAND 40 % (0-10); NEUTROPHILS 52 % (42.0-75.2); PLATELET ESTIMATE NORMAL (NORMAL); TOTAL CELLS COUNTED 100
[2016-08-21 05:23] LABS: ADJUSTED CALCIUM 9.5 mg/dL (8.4-10.2); ALBUMIN 1.9 gm/dL (3.5-5.0); BILIRUBIN,TOTAL 0.4 mg/dL (0.0-1.0); CALCIUM 7.8 mg/dL (8.4-10.2); TOTAL PROTEIN 4.3 gm/dL (6.4-8.2)
[2016-08-21 05:29] LABS: CREATININE, serum 3.26 mg/dL (0.66-1.25)
[2016-08-21 05:31] LABS: POTASSIUM 7.2 mmol/L (3.4-5.0)
[2016-08-21 07:51] LABS: ARTERIAL BLD GAS O2 SATURATION 93.2 % (92-100); ARTERIAL BLD GAS TCO2 CT 27.2; ARTERIAL BLOOD GAS BASE EXCESS -2.8 (-2-2); ARTERIAL BLOOD GAS HCO3 25.2 meq/L (22-26); ARTERIAL BLOOD GAS PO2 80.7 mmHg (80-100); ARTERIAL BLOOD GAS pH 7.21 (7.35-7.45); ATS? YES; OXYHEMOGLOBIN 91.8 %
[2016-08-21 07:52] LABS: ABG VENTILATOR TIDAL VOLUME 480 mL; ALLEN TEST NO
== END 2016-08-21 12:05 | disposition expired | DRG 698 ==
LOC: IMCU 09:49 → ICU 09:50
PROVIDERS: Emergency Medicine; Internal Medicine; Internal Medicine Pulmonary Disease
PROC: 02HV33Z Insertion of Infusion Device into Superior Vena Cava, Percutaneous Approach (ICD-10-PCS; principal; 2016-08-20)
DX: N13.9 Obstructive and reflux uropathy, unspecified (principal); J96.01 Acute respiratory failure with hypoxia; N17.9 Acute kidney failure, unspecified; E87.1 Hypo-osmolality and hyponatremia; E87.2 Acidosis; R78.81 Bacteremia; N39.0 Urinary tract infection, site not specified; E87.5 Hyperkalemia; Z66 Do not resuscitate; Z51.5 Encounter for palliative care; I25.10 Atherosclerotic heart disease of native coronary artery without angina pectoris; D64.9 Anemia, unspecified; S32.10XD Unspecified fracture of sacrum, subsequent encounter for fracture with routine healing; E11.65 Type 2 diabetes mellitus with hyperglycemia; Z79.4 Long term (current) use of insulin; I10 Essential (primary) hypertension; B95.61 Methicillin susceptible Staphylococcus aureus infection as the cause of diseases classified elsewhere
CPT/HCPCS: A4315; C1751; C1894; J1644; J1815; J1940; J2060; J2270; J2543; J2920; J7030; J7050